=== PATIENT | female | born 1930 | race Hispanic/Latino ===

== ENCOUNTER 2017-06-16 22:57 | Inpatient (IN) | payer MEDICARE ==
[~2017-06-16] VITALS: Ht 165.1 cm; Wt 80.7 kg
[~2017-06-16 22:57] MED LIST: ESCI10TA54 PO; FERS325 PO; INSLAN SQ; INSU100I3 SQ; ISOS30TA6 PO; MECL-111 PO; METF10004 PO; METO-408 PO; PANT40TA25 PO; RAMI10CA58 PO; SIMV20TA6 PO; SUCR1TAB2 PO
[2017-06-16] MEDS ORDERED: KETOROLAC TROMETHAMINE 15MG/ML ONE (23:36)
[2017-06-17 00:14] LABS: EOSINOPHILS % (AUTO) 1.3 % (0.0-8.0); HEMATOCRIT 33.6 % (36-48); LYMPHOCYTES % (AUTO) 20.5 % (21.0-51.0); MEAN CORPUSCULAR HEMOGLOBIN 27.7 pg (27.0-33.0); MEAN CORPUSCULAR HGB CONC 32.5 g/dL (32.0-36.0); MEAN CORPUSCULAR VOLUME 85.1 fL (79-99); MONOCYTES % (AUTO) 2.6 % (3.0-13.0); NEUTROPHILS % (AUTO) 74.6 % (40.0-77.0); PLATELET COUNT (AUTO) 236 K/uL (130-400); RED BLOOD CELL COUNT(AUTO) 3.95 MIL/uL (4.00-5.50); RED CELL DISTRIBUTION WIDTH 21.1 % (11.0-15.5); WHITE BLOOD COUNT (AUTO) 10.1 K/uL (4.8-10.8)
[2017-06-17 00:24] LABS: INR 1.24 (0.85-1.15); PARTIAL THROMBOPLASTIN TIME 31.5 SEC (26.3-35.5); POTASSIUM 3.7 mmol/L (3.5-5.1)
[2017-06-17 00:28] LABS: ALBUMIN 3.2 g/dL (3.5-5.0); BILIRUBIN,TOTAL 0.6 mg/dL (0.2-1.0); TOTAL PROTEIN, SERUM 7.3 g/dL (6.0-8.3)
[2017-06-17] MEDS ORDERED: HYOSCYAMINE SULFATE 0.125 MG TAB.SUBL SL ONE (01:14)
[2017-06-17] MEDS ORDERED: MORPHINE SULFATE 2 MG/ML 1ML SYG ONE (01:31)
[2017-06-17] MEDS ORDERED: SODIUM CHLORIDE 0.9% 1000ML 1,000 ML IV SCH (02:00)
[2017-06-17] MEDS: SODIUM CHLORIDE 0.9% 1000ML 1,000 ML IV SCH (06:08)
[2017-06-17] MEDS ORDERED: POTASSIUM CHLORIDE 10% ELIXIR 20 MEQ/15 ML UDCUP PO PRN (06:15)
[2017-06-17] MEDS ORDERED: ACETAMINOPHEN 325 MG TAB PO PRN ×2 (06:15)
[2017-06-17] MEDS ORDERED: ONDANSETRON HCL 4 MG/2 ML VIAL IV PRN (06:15)
[2017-06-17] MEDS ORDERED: HYDRALAZINE HCL 20 MG/ML VIAL IV PRN (06:15)
[2017-06-17] MEDS ORDERED: LIDOCAINE HCL-MPF 1% 2ML VIAL IVP PRN (06:15)
[2017-06-17] MEDS ORDERED: POTASSIUM CHLORIDE 20MEQ/100ML 100 ML IV PRN (06:15)
[2017-06-17] MEDS ORDERED: MORPHINE SULFATE 2 MG/ML 1ML SYG IV PRN (06:15)
[2017-06-17] MEDS ORDERED: METRONIDAZOLE 500 MG TABLET ONE ×2 (06:32→14:37)
[2017-06-17] MEDS: INSULIN HUMULIN R 100 UNIT/ML 3ML SQ SCH ×4 (07:30→21:00)
[2017-06-17] MEDS: PANTOPRAZOLE SODIUM 40 MG TABLET.DR PO SCH (09:00)
[2017-06-17] MEDS: METRONIDAZOLE 500 MG TABLET PO SCH ×3 (09:00→22:44)
[2017-06-17] MEDS ORDERED: FAMOTIDINE/PF 20 MG/2 ML VIAL IV ONE (10:26)
[2017-06-17] MEDS ORDERED: MORPHINE SULFATE 4 MG/1ML SYG ONE (10:35)
[2017-06-17] MEDS ORDERED: MECLIZINE HCL 25 MG TABLET PO PRN (10:45)
[2017-06-17] MEDS: IRON SUCROSE COMPLEX 100 MG in SODIUM CHLORIDE 0.9% 50 ML IV SCH (10:45)
[2017-06-17] MEDS: CEFTRIAXONE SODIUM 1 GM IVP SCH ×2 (10:45→18:33)
[2017-06-17] MEDS ORDERED: CEFTRIAXONE 1GM/D5W 50ML 50 ML IV SCH (10:45)
[2017-06-17] MEDS ORDERED: COMPOUND IV MISC 1 EACH IVSOLN MISC PRN (10:45)
[2017-06-17] MEDS: SUCRALFATE 1 GM TABLET PO SCH ×3 (13:00→22:44)
[2017-06-17] MEDS ORDERED: ACETAMINOPHEN 325 MG TAB ONE (14:21)
[2017-06-17] MEDS ORDERED: AMLO2.5T PO (15:02)
[2017-06-17] MEDS ORDERED: FERS325 PO (15:08)
[2017-06-17] MEDS ORDERED: FOLI1TAB15 PO (15:08)
[2017-06-17] MEDS ORDERED: DONE5TAB26 PO (15:08)
[2017-06-17 17:30] VITALS: BP 128/54
[2017-06-17] MEDS ORDERED: WATER FOR INJECTION,STERILE 20 ML VIAL ONE (18:21)
[2017-06-17 20:00] VITALS: BP 124/55
[2017-06-17] MEDS ORDERED: FLU VACC QS2017-18 36MOS UP/PF 60 MCG/0.5 ML ML IM SCH (20:30)
[2017-06-17] MEDS: **HM** TOPROL XL 25MG PO SCH (21:00)
[2017-06-17 23:54] VITALS: BP 120/55
[2017-06-18 03:52] LABS: HEMATOCRIT 27.3 % (36-48); MEAN CORPUSCULAR HEMOGLOBIN 27.8 pg (27.0-33.0); MEAN CORPUSCULAR HGB CONC 32.8 g/dL (32.0-36.0); MEAN CORPUSCULAR VOLUME 84.6 fL (79-99); NUCLEATED RED BLOOD CELLS 0.1 % (0.0-0.19); PLATELET COUNT (AUTO) 154 K/uL (130-400); RED BLOOD CELL COUNT(AUTO) 3.23 MIL/uL (4.00-5.50); RED CELL DISTRIBUTION WIDTH 21.9 % (11.0-15.5); WHITE BLOOD COUNT (AUTO) 5.6 K/uL (4.8-10.8)
[2017-06-18 03:58] LABS: CREATININE 1.1 mg/dL (0.5-1.5)
[2017-06-18 04:00] VITALS: BP 139/59
[2017-06-18] MEDS: INSULIN HUMULIN R 100 UNIT/ML 3ML SQ SCH ×4 (07:30→20:35)
[2017-06-18 08:29] VITALS: BP 144/66
[2017-06-18] MEDS ORDERED: DONEPEZIL HCL 5 MG TAB PO SCH (09:00)
[2017-06-18] MEDS: **HM** TOPROL XL 25MG PO SCH ×2 (09:00→20:35)
[2017-06-18] MEDS: FERROUS SULFATE 325 MG TABLET.DR PO SCH ×3 (09:59→20:33)
[2017-06-18] MEDS: SUCRALFATE 1 GM TABLET PO SCH ×4 (09:59→20:33)
[2017-06-18] MEDS: LISINOPRIL 40 MG TABLET PO SCH ×2 (10:01→20:33)
[2017-06-18] MEDS: PANTOPRAZOLE SODIUM 40 MG TABLET.DR PO SCH (10:02)
[2017-06-18] MEDS: METRONIDAZOLE 500 MG TABLET PO SCH ×3 (10:02→20:33)
[2017-06-18] MEDS: SODIUM CHLORIDE 0.9% 1000ML 1,000 ML IV SCH ×2 (10:11→15:09)
[2017-06-18 11:35] VITALS: BP 144/74
[2017-06-18 13:34] LABS: % IRON SATURATION 22.8 % (22-44)
[2017-06-18] MEDS: CEFTRIAXONE SODIUM 1 GM IVP SCH (15:01)
[2017-06-18] MEDS: IRON SUCROSE COMPLEX 100 MG in SODIUM CHLORIDE 0.9% 50 ML IV SCH (15:06)
[2017-06-18 15:46] VITALS: BP 125/60
[2017-06-18] MEDS ORDERED: MORPHINE SULFATE 4 MG/1ML SYG ONE (17:15)
[2017-06-18] MEDS ORDERED: LOPERAMIDE HCL 2 MG CAP PO PRN (18:00)
[2017-06-18] MEDS: GUAIFENESIN SUGAR-FREE 100 MG/5 ML UDCUP PO PRN (18:37)
[2017-06-18 20:20] VITALS: BP 164/76
[2017-06-18] MEDS: DONEPEZIL HCL 5 MG TAB PO SCH (20:33)
[2017-06-18 23:20] VITALS: BP 126/82
[2017-06-19] MEDS: GUAIFENESIN SUGAR-FREE 100 MG/5 ML UDCUP PO PRN ×5 (02:53→21:29)
[2017-06-19 03:56] LABS: HEMATOCRIT 28.7 % (36-48); MEAN CORPUSCULAR HEMOGLOBIN 28.9 pg (27.0-33.0); MEAN CORPUSCULAR HGB CONC 33.9 g/dL (32.0-36.0); MEAN CORPUSCULAR VOLUME 85.4 fL (79-99); PLATELET COUNT (AUTO) 151 K/uL (130-400); RED BLOOD CELL COUNT(AUTO) 3.36 MIL/uL (4.00-5.50); RED CELL DISTRIBUTION WIDTH 22.1 % (11.0-15.5); WHITE BLOOD COUNT (AUTO) 5.1 K/uL (4.8-10.8)
[2017-06-19 04:24] VITALS: BP 126/61
[2017-06-19] MEDS: INSULIN HUMULIN R 100 UNIT/ML 3ML SQ SCH ×4 (06:30→20:42)
[2017-06-19] MEDS: INSULIN GLARGINE 100 UNITS/ML 10 ML VIAL SQ SCH (06:41)
[2017-06-19 08:00] VITALS: BP 143/74
[2017-06-19] MEDS: **HM** TOPROL XL 25MG PO SCH ×2 (09:00→20:17)
[2017-06-19] MEDS: SUCRALFATE 1 GM TABLET PO SCH ×4 (09:05→20:16)
[2017-06-19] MEDS: METRONIDAZOLE 500 MG TABLET PO SCH ×3 (09:05→20:16)
[2017-06-19] MEDS: LISINOPRIL 40 MG TABLET PO SCH ×2 (09:05→20:17)
[2017-06-19] MEDS: AMLODIPINE BESYLATE 2.5 MG TAB PO SCH (09:05)
[2017-06-19] MEDS: PANTOPRAZOLE SODIUM 40 MG TABLET.DR PO SCH (09:05)
[2017-06-19] MEDS: FOLIC ACID 1 MG TABLET PO SCH (09:06)
[2017-06-19] MEDS: FERROUS SULFATE 325 MG TABLET.DR PO SCH ×3 (09:06→20:16)
[2017-06-19] MEDS: SODIUM CHLORIDE 0.9% 1000ML 1,000 ML IV SCH (09:08)
[2017-06-19 11:44] VITALS: BP 143/75
[2017-06-19] MEDS: LEVOFLOXACIN 500 MG/D5W 100 ML 100 ML IV SCH (11:45)
[2017-06-19] MEDS ORDERED: MORPHINE SULFATE 4 MG/1ML SYG ONE (12:01)
[2017-06-19] MEDS: IRON SUCROSE COMPLEX 100 MG in SODIUM CHLORIDE 0.9% 50 ML IV SCH (13:06)
[2017-06-19 15:53] VITALS: BP 162/70
[2017-06-19 17:09] LABS: ALBUMIN 2.6 g/dL (3.5-5.0); BILIRUBIN,TOTAL 0.4 mg/dL (0.2-1.0); CREATININE 0.9 mg/dL (0.5-1.5); POTASSIUM 3.7 mmol/L (3.5-5.1); TOTAL PROTEIN, SERUM 6.3 g/dL (6.0-8.3)
[2017-06-19 17:36] LABS: % IRON SATURATION 97.4 % (22-44)
[2017-06-19] MEDS: BENZONATATE 100 MG CAPSULE PO SCH ×2 (18:54→22:06)
[2017-06-19] MEDS ORDERED: MORPHINE SULFATE 5 MG/ML VIAL ONE (19:34)
[2017-06-19 19:45] VITALS: BP 138/74
[2017-06-19] MEDS: DONEPEZIL HCL 5 MG TAB PO SCH (20:17)
[2017-06-19] MEDS ORDERED: CLONAZEPAM 0.5 MG TABLET PO ONE (22:30)
[2017-06-19] MEDS ORDERED: CLONAZEPAM 0.5 MG TABLET ONE (23:42)
[2017-06-19 23:56] VITALS: BP 132/59
[2017-06-20 04:34] VITALS: BP 117/66
[2017-06-20] MEDS: SODIUM CHLORIDE 0.9% 1000ML 1,000 ML IV SCH ×2 (06:03→17:47)
[2017-06-20] MEDS: BENZONATATE 100 MG CAPSULE PO SCH ×3 (06:03→22:10)
[2017-06-20] MEDS: INSULIN HUMULIN R 100 UNIT/ML 3ML SQ SCH ×4 (06:04→20:52)
[2017-06-20 06:20] LABS: HEMATOCRIT 27.5 % (36-48); MEAN CORPUSCULAR HEMOGLOBIN 28.4 pg (27.0-33.0); MEAN CORPUSCULAR HGB CONC 33.5 g/dL (32.0-36.0); MEAN CORPUSCULAR VOLUME 84.7 fL (79-99); PLATELET COUNT (AUTO) 152 K/uL (130-400); RED BLOOD CELL COUNT(AUTO) 3.25 MIL/uL (4.00-5.50); RED CELL DISTRIBUTION WIDTH 21.3 % (11.0-15.5); WHITE BLOOD COUNT (AUTO) 4.9 K/uL (4.8-10.8)
[2017-06-20 06:24] LABS: APPEARANCE,URINE CLEAR (CLEAR); BILIRUBIN,URINE NEGATIVE (NEGATIVE); COLOR,URINE YELLOW (YELLOW); GLUCOSE, URINE (UA) NEGATIVE (NEGATIVE); KETONES,URINE NEGATIVE (NEGATIVE); LEUKOCYTE ESTERASE ,URINE NEGATIVE (NEGATIVE); NITRATE,URINE NEGATIVE (NEGATIVE); OCCULT BLOOD,URINE NEGATIVE (NEGATIVE); PROTEIN,URINE NEGATIVE (NEGATIVE); UROBILINOGEN,URINE 0.2 mg/dL (0.2-1.0)
[2017-06-20 06:26] LABS: CHLORIDE 108 mmol/L (101-111); CREATININE 0.7 mg/dL (0.5-1.5); GLUCOSE,RANDOM 82 mg/dL (70-105); POTASSIUM 3.5 mmol/L (3.5-5.1); SODIUM SERUM 142 mmol/L (136-145); UREA NITROGEN, BLOOD 7 mg/dL (7-18)
[2017-06-20 06:30] LABS: CARBON DIOXIDE 26 mmol/L (21-32)
[2017-06-20] MEDS: INSULIN GLARGINE 100 UNITS/ML 10 ML VIAL SQ SCH (06:51)
[2017-06-20 08:16] VITALS: BP 146/69
[2017-06-20] MEDS: **HM** TOPROL XL 25MG PO SCH ×2 (09:00→20:25)
[2017-06-20] MEDS ORDERED: IPRATROPIUM/ALBUTEROL SULFATE 3 ML SOLUTION IH PRN (10:15)
[2017-06-20] MEDS: METRONIDAZOLE 500 MG TABLET PO SCH ×3 (10:24→20:25)
[2017-06-20] MEDS: AMLODIPINE BESYLATE 2.5 MG TAB PO SCH (10:24)
[2017-06-20] MEDS: PANTOPRAZOLE SODIUM 40 MG TABLET.DR PO SCH (10:24)
[2017-06-20] MEDS: FERROUS SULFATE 325 MG TABLET.DR PO SCH ×3 (10:24→20:25)
[2017-06-20] MEDS: SUCRALFATE 1 GM TABLET PO SCH ×4 (10:24→20:24)
[2017-06-20] MEDS: FOLIC ACID 1 MG TABLET PO SCH (10:25)
[2017-06-20] MEDS: LISINOPRIL 40 MG TABLET PO SCH ×2 (10:25→20:25)
[2017-06-20] MEDS: GUAIFENESIN SUGAR-FREE 100 MG/5 ML UDCUP PO PRN (10:27)
[2017-06-20] MEDS: LEVOFLOXACIN 500 MG/D5W 100 ML 100 ML IV SCH (10:35)
[2017-06-20] MEDS: IPRATROPIUM/ALBUTEROL SULFATE 3 ML SOLUTION IH SCH ×2 (10:35→19:12)
[2017-06-20] MEDS: ACETYLCYSTEINE 10% 100MG/ML 4ML VIAL IH SCH ×2 (10:36→19:12)
[2017-06-20 11:13] VITALS: BP 170/76
[2017-06-20] MEDS: IRON SUCROSE COMPLEX 100 MG in SODIUM CHLORIDE 0.9% 50 ML IV SCH (12:23)
[2017-06-20] MEDS: GUAIFENESIN-CODEINE 5 ML SYRUP PO PRN (12:51)
[2017-06-20] MEDS ORDERED: MORPHINE SULFATE 5 MG/ML VIAL ONE (14:40)
[2017-06-20 16:43] VITALS: BP 127/53
[2017-06-20 19:40] VITALS: BP 140/67
[2017-06-20] MEDS: CLONAZEPAM 0.5 MG TABLET PO SCH (20:24)
[2017-06-20] MEDS: DONEPEZIL HCL 5 MG TAB PO SCH (20:25)
[2017-06-20] MEDS ORDERED: ACETYLCYSTEINE 20% 200MG/ML 4ML VIAL IH SCH (21:00)
[2017-06-20 23:50] VITALS: BP 138/71
[2017-06-21] MEDS: IPRATROPIUM/ALBUTEROL SULFATE 3 ML SOLUTION IH SCH ×5 (00:07→23:57)
[2017-06-21] MEDS: ACETYLCYSTEINE 10% 100MG/ML 4ML VIAL IH SCH ×5 (00:07→23:57)
[2017-06-21 05:03] VITALS: BP 129/61
[2017-06-21] MEDS: BENZONATATE 100 MG CAPSULE PO SCH ×3 (05:49→20:50)
[2017-06-21 06:04] LABS: HEMATOCRIT 27.5 % (36-48); MEAN CORPUSCULAR HEMOGLOBIN 29.7 pg (27.0-33.0); MEAN CORPUSCULAR HGB CONC 34.7 g/dL (32.0-36.0); MEAN CORPUSCULAR VOLUME 85.5 fL (79-99); NUCLEATED RED BLOOD CELLS 0.1 % (0.0-0.19); PLATELET COUNT (AUTO) 150 K/uL (130-400); RED BLOOD CELL COUNT(AUTO) 3.21 MIL/uL (4.00-5.50); RED CELL DISTRIBUTION WIDTH 21.7 % (11.0-15.5); WHITE BLOOD COUNT (AUTO) 4.8 K/uL (4.8-10.8)
[2017-06-21] MEDS: INSULIN HUMULIN R 100 UNIT/ML 3ML SQ SCH ×4 (06:13→20:48)
[2017-06-21] MEDS: INSULIN GLARGINE 100 UNITS/ML 10 ML VIAL SQ SCH (07:30)
[2017-06-21 08:00] VITALS: BP 130/67
[2017-06-21] MEDS: METRONIDAZOLE 500 MG TABLET PO SCH ×3 (08:55→20:47)
[2017-06-21] MEDS: LISINOPRIL 40 MG TABLET PO SCH ×2 (08:55→20:47)
[2017-06-21] MEDS: FOLIC ACID 1 MG TABLET PO SCH (08:56)
[2017-06-21] MEDS: SUCRALFATE 1 GM TABLET PO SCH ×4 (08:56→20:47)
[2017-06-21] MEDS: AMLODIPINE BESYLATE 2.5 MG TAB PO SCH (08:56)
[2017-06-21] MEDS: GUAIFENESIN-CODEINE 5 ML SYRUP PO PRN ×3 (08:56→22:17)
[2017-06-21] MEDS: FERROUS SULFATE 325 MG TABLET.DR PO SCH ×3 (08:56→20:47)
[2017-06-21] MEDS: PANTOPRAZOLE SODIUM 40 MG TABLET.DR PO SCH (08:56)
[2017-06-21] MEDS: **HM** TOPROL XL 25MG PO SCH ×2 (09:00→20:48)
[2017-06-21] MEDS: SODIUM CHLORIDE 0.9% 1000ML 1,000 ML IV SCH (10:08)
[2017-06-21 11:00] VITALS: BP 138/74
[2017-06-21] MEDS: IRON SUCROSE COMPLEX 100 MG in SODIUM CHLORIDE 0.9% 50 ML IV SCH (13:38)
[2017-06-21] MEDS: LEVOFLOXACIN 500 MG/D5W 100 ML 100 ML IV SCH (15:08)
[2017-06-21 16:00] VITALS: BP 129/57
[2017-06-21 20:05] VITALS: BP 135/62
[2017-06-21] MEDS: DONEPEZIL HCL 5 MG TAB PO SCH (20:47)
[2017-06-21] MEDS: CLONAZEPAM 0.5 MG TABLET PO SCH (20:48)
[2017-06-21] MEDS: GUAIFENESIN SUGAR-FREE 100 MG/5 ML UDCUP PO PRN (22:14)
[2017-06-21 23:47] VITALS: BP 124/63
[2017-06-22 04:01] LABS: HEMATOCRIT 26.9 % (36-48)
[2017-06-22 04:20] VITALS: BP 118/52
[2017-06-22] MEDS: ACETYLCYSTEINE 10% 100MG/ML 4ML VIAL IH SCH ×4 (06:17→23:36)
[2017-06-22] MEDS: IPRATROPIUM/ALBUTEROL SULFATE 3 ML SOLUTION IH SCH ×4 (06:17→23:36)
[2017-06-22] MEDS: BENZONATATE 100 MG CAPSULE PO SCH ×3 (06:20→22:00)
[2017-06-22] MEDS: INSULIN HUMULIN R 100 UNIT/ML 3ML SQ SCH ×4 (06:21→20:42)
[2017-06-22] MEDS: INSULIN GLARGINE 100 UNITS/ML 10 ML VIAL SQ SCH (07:41)
[2017-06-22 07:58] VITALS: BP 137/97
[2017-06-22] MEDS: **HM** TOPROL XL 25MG PO SCH ×2 (09:00→20:31)
[2017-06-22] MEDS: METRONIDAZOLE 500 MG TABLET PO SCH ×3 (10:09→20:30)
[2017-06-22] MEDS: SUCRALFATE 1 GM TABLET PO SCH ×4 (10:09→20:30)
[2017-06-22] MEDS: PANTOPRAZOLE SODIUM 40 MG TABLET.DR PO SCH (10:09)
[2017-06-22] MEDS: GUAIFENESIN-CODEINE 5 ML SYRUP PO PRN ×3 (10:09→20:42)
[2017-06-22] MEDS: FOLIC ACID 1 MG TABLET PO SCH (10:09)
[2017-06-22] MEDS: FERROUS SULFATE 325 MG TABLET.DR PO SCH ×3 (10:09→20:30)
[2017-06-22] MEDS: LISINOPRIL 40 MG TABLET PO SCH ×2 (10:10→20:30)
[2017-06-22] MEDS: AMLODIPINE BESYLATE 2.5 MG TAB PO SCH (10:10)
[2017-06-22 11:00] VITALS: BP 141/68
[2017-06-22] MEDS: LEVOFLOXACIN 500 MG/D5W 100 ML 100 ML IV SCH (13:59)
[2017-06-22] MEDS: IRON SUCROSE COMPLEX 100 MG in SODIUM CHLORIDE 0.9% 50 ML IV SCH (13:59)
[2017-06-22 16:00] VITALS: BP 136/63
[2017-06-22 17:27] LABS: HEMATOCRIT 29.4 % (36-48)
[2017-06-22] MEDS: DONEPEZIL HCL 5 MG TAB PO SCH (20:31)
[2017-06-22] MEDS: CLONAZEPAM 0.5 MG TABLET PO SCH (20:31)
[2017-06-22 20:38] VITALS: BP 134/64
[2017-06-23] VITALS (7 sets, daily range): BP systolic 112–135; BP diastolic 41–63
[2017-06-23 06:09] LABS: HEMATOCRIT 27.5 % (36-48); MEAN CORPUSCULAR HEMOGLOBIN 29.1 pg (27.0-33.0); MEAN CORPUSCULAR HGB CONC 34.1 g/dL (32.0-36.0); MEAN CORPUSCULAR VOLUME 85.5 fL (79-99); PLATELET COUNT (AUTO) 153 K/uL (130-400); RED BLOOD CELL COUNT(AUTO) 3.22 MIL/uL (4.00-5.50); RED CELL DISTRIBUTION WIDTH 22.5 % (11.0-15.5)
[2017-06-23 06:19] LABS: CREATININE 0.7 mg/dL (0.5-1.5); POTASSIUM 3.2 mmol/L (3.5-5.1)
[2017-06-23] MEDS: INSULIN HUMULIN R 100 UNIT/ML 3ML SQ SCH ×4 (06:21→21:00)
[2017-06-23] MEDS: IPRATROPIUM/ALBUTEROL SULFATE 3 ML SOLUTION IH SCH ×4 (06:31→23:40)
[2017-06-23] MEDS: ACETYLCYSTEINE 10% 100MG/ML 4ML VIAL IH SCH ×4 (06:31→23:40)
[2017-06-23] MEDS: BENZONATATE 100 MG CAPSULE PO SCH ×3 (06:44→22:00)
[2017-06-23] MEDS: INSULIN GLARGINE 100 UNITS/ML 10 ML VIAL SQ SCH (06:46)
[2017-06-23] MEDS: **HM** TOPROL XL 25MG PO SCH ×2 (09:00→21:00)
[2017-06-23] MEDS: METRONIDAZOLE 500 MG TABLET PO SCH ×2 (10:06→12:56)
[2017-06-23] MEDS: SUCRALFATE 1 GM TABLET PO SCH ×2 (10:06→12:32)
[2017-06-23] MEDS: FOLIC ACID 1 MG TABLET PO SCH (10:06)
[2017-06-23] MEDS: LISINOPRIL 40 MG TABLET PO SCH (10:06)
[2017-06-23] MEDS: AMLODIPINE BESYLATE 2.5 MG TAB PO SCH (10:06)
[2017-06-23] MEDS: FERROUS SULFATE 325 MG TABLET.DR PO SCH (10:07)
[2017-06-23] MEDS: GUAIFENESIN-CODEINE 5 ML SYRUP PO PRN ×3 (10:07→22:44)
[2017-06-23] MEDS: POTASSIUM CHLORIDE 20 MEQ ERTAB PO PRN ×3 (10:17→15:25)
[2017-06-23] MEDS: IRON SUCROSE COMPLEX 100 MG in SODIUM CHLORIDE 0.9% 50 ML IV SCH (12:32)
[2017-06-23] MEDS: LEVOFLOXACIN 500 MG/D5W 100 ML 100 ML IV SCH (15:25)
[2017-06-23] MEDS ORDERED: PEG 3350/NA SULF,BICARB,CL/KCL 4000 ML SOLN PO SCH (17:00)
[2017-06-23] MEDS ORDERED: PHENOL 177 ML BOTTLE PO PRN (17:00)
[2017-06-23] MEDS ORDERED: METHYLPREDNISOLONE SOD SUCC 40MG/ML 1ML IVP SCH (21:00)
[2017-06-24] VITALS (19 sets, daily range): BP systolic 101–145; BP diastolic 51–94
[2017-06-24] MEDS: CLONAZEPAM 0.5 MG TABLET PO SCH ×2 (01:58→21:00)
[2017-06-24] MEDS: DONEPEZIL HCL 5 MG TAB PO SCH ×2 (01:58→20:58)
[2017-06-24] MEDS: METRONIDAZOLE 500 MG TABLET PO SCH ×4 (02:00→20:59)
[2017-06-24] MEDS: LISINOPRIL 40 MG TABLET PO SCH ×3 (02:00→20:59)
[2017-06-24] MEDS: PANTOPRAZOLE SODIUM 40 MG TABLET.DR PO SCH ×3 (02:00→21:00)
[2017-06-24] MEDS: BENZONATATE 100 MG CAPSULE PO SCH ×3 (03:28→21:00)
[2017-06-24 04:09] LABS: HEMATOCRIT 29.2 % (36-48); MEAN CORPUSCULAR HEMOGLOBIN 28.1 pg (27.0-33.0); MEAN CORPUSCULAR HGB CONC 32.8 g/dL (32.0-36.0); MEAN CORPUSCULAR VOLUME 85.6 fL (79-99); PLATELET COUNT (AUTO) 161 K/uL (130-400); RED BLOOD CELL COUNT(AUTO) 3.42 MIL/uL (4.00-5.50); RED CELL DISTRIBUTION WIDTH 22.7 % (11.0-15.5); WHITE BLOOD COUNT (AUTO) 4.9 K/uL (4.8-10.8)
[2017-06-24 04:22] LABS: CREATININE 0.7 mg/dL (0.5-1.5); POTASSIUM 4.2 mmol/L (3.5-5.1)
[2017-06-24] MEDS: IPRATROPIUM/ALBUTEROL SULFATE 3 ML SOLUTION IH SCH ×3 (06:00→18:33)
[2017-06-24] MEDS: ACETYLCYSTEINE 10% 100MG/ML 4ML VIAL IH SCH ×2 (06:00→18:33)
[2017-06-24] MEDS ORDERED: MAGNESIUM CITRATE 296 ML SOLUTION PO SCH (06:00)
[2017-06-24] MEDS: INSULIN GLARGINE 100 UNITS/ML 10 ML VIAL SQ SCH (06:27)
[2017-06-24] MEDS: INSULIN HUMULIN R 100 UNIT/ML 3ML SQ SCH ×4 (06:28→21:00)
[2017-06-24] MEDS ORDERED: IPRATROPIUM/ALBUTEROL SULFATE 3 ML SOLUTION IH SCH (09:00)
[2017-06-24] MEDS: **HM** TOPROL XL 25MG PO SCH ×2 (09:00→21:04)
[2017-06-24] MEDS ORDERED: FENTANYL CITRATE PF 50 MCG/1 ML 2ML VIAL ONE (09:22)
[2017-06-24] MEDS ORDERED: MIDAZOLAM HCL 1 MG/ML 2ML VIAL ONE (09:22)
[2017-06-24] MEDS ORDERED: PROPOFOL 10 MG/ML 20ML VIAL IV ONE (09:22)
[2017-06-24] MEDS: IRON SUCROSE COMPLEX 100 MG in SODIUM CHLORIDE 0.9% 50 ML IV SCH (13:08)
[2017-06-24] MEDS: FOLIC ACID 1 MG TABLET PO SCH (13:09)
[2017-06-24] MEDS: AMLODIPINE BESYLATE 2.5 MG TAB PO SCH (13:12)
[2017-06-24] MEDS: LEVOFLOXACIN 500 MG/D5W 100 ML 100 ML IV SCH (13:22)
[2017-06-24] MEDS: METHYLPREDNISOLONE SOD SUCC 40MG/ML 1ML IVP SCH (20:59)
[2017-06-24] MEDS: HYDROCORTISONE 25 MG SUPPOSITORY PR SCH (21:00)
[2017-06-25] MEDS: IPRATROPIUM/ALBUTEROL SULFATE 3 ML SOLUTION IH SCH ×2 (00:24→07:02)
[2017-06-25 03:47] VITALS: BP 126/63
[2017-06-25 04:14] LABS: CREATININE 0.9 mg/dL (0.5-1.5); POTASSIUM 4.8 mmol/L (3.5-5.1)
[2017-06-25 05:11] LABS: HEMATOCRIT 27.2 % (36-48); MEAN CORPUSCULAR HEMOGLOBIN 28.4 pg (27.0-33.0); MEAN CORPUSCULAR HGB CONC 32.7 g/dL (32.0-36.0); MEAN CORPUSCULAR VOLUME 86.8 fL (79-99); PLATELET COUNT (AUTO) 156 K/uL (130-400); RED BLOOD CELL COUNT(AUTO) 3.13 MIL/uL (4.00-5.50); RED CELL DISTRIBUTION WIDTH 23.1 % (11.0-15.5); WHITE BLOOD COUNT (AUTO) 7.2 K/uL (4.8-10.8)
[2017-06-25] MEDS: BENZONATATE 100 MG CAPSULE PO SCH (06:00)
[2017-06-25] MEDS: GUAIFENESIN-CODEINE 5 ML SYRUP PO PRN ×2 (06:29→11:54)
[2017-06-25] MEDS: INSULIN GLARGINE 100 UNITS/ML 10 ML VIAL SQ SCH (06:35)
[2017-06-25] MEDS: INSULIN HUMULIN R 100 UNIT/ML 3ML SQ SCH ×2 (06:36→11:45)
[2017-06-25 07:00] VITALS: BP 131/61
[2017-06-25] MEDS: HYDROCORTISONE 25 MG SUPPOSITORY PR SCH (08:57)
[2017-06-25] MEDS: AMLODIPINE BESYLATE 2.5 MG TAB PO SCH (08:57)
[2017-06-25] MEDS: LISINOPRIL 40 MG TABLET PO SCH (08:57)
[2017-06-25] MEDS: FOLIC ACID 1 MG TABLET PO SCH (08:57)
[2017-06-25] MEDS: METRONIDAZOLE 500 MG TABLET PO SCH (08:57)
[2017-06-25] MEDS: PANTOPRAZOLE SODIUM 40 MG TABLET.DR PO SCH (08:57)
[2017-06-25] MEDS: METHYLPREDNISOLONE SOD SUCC 40MG/ML 1ML IVP SCH (08:57)
[2017-06-25] MEDS: **HM** TOPROL XL 25MG PO SCH (08:58)
[2017-06-25] MEDS: IRON SUCROSE COMPLEX 100 MG in SODIUM CHLORIDE 0.9% 50 ML IV SCH (08:58)
[2017-06-25] MEDS ORDERED: LEVO250T2 PO (09:36)
[2017-06-25] MEDS ORDERED: HYDR25SU11 PR (09:36)
[2017-06-25 11:01] VITALS: BP 129/61
[2017-06-25] MEDS: GUAIFENESIN SUGAR-FREE 100 MG/5 ML UDCUP PO PRN (11:49)
== END 2017-06-25 12:40 | disposition home or self-care (01) | DRG 372 ==
LOC: EDH 22:57 → EDHIP 06-17 01:16 → OBSVTOIN 06-17 01:16 → 3BH 06-17 16:54
PROVIDERS: ADMIT Family Medicine; ATTEND Family Medicine
PROC: 0DJD8ZZ Inspection of Lower Intestinal Tract, Via Natural or Artificial Opening Endoscopic (ICD-10-PCS; principal; 2017-06-24)
PROC: 3E0234Z Introduction of Serum, Toxoid and Vaccine into Muscle, Percutaneous Approach (ICD-10-PCS; 2017-06-25)
DX: A04.4 Other intestinal Escherichia coli infections (principal); D62 Acute posthemorrhagic anemia; E11.9 Type 2 diabetes mellitus without complications; D63.8 Anemia in other chronic diseases classified elsewhere; G30.9 Alzheimer's disease, unspecified; F02.80 Dementia in other diseases classified elsewhere, unspecified severity, without behavioral disturbance, psychotic disturbance, mood disturbance, and anxiety; E78.5 Hyperlipidemia, unspecified; K55.20 Angiodysplasia of colon without hemorrhage; K57.90 Diverticulosis of intestine, part unspecified, without perforation or abscess without bleeding; K64.8 Other hemorrhoids; I10 Essential (primary) hypertension; J20.9 Acute bronchitis, unspecified; F41.9 Anxiety disorder, unspecified; K29.70 Gastritis, unspecified, without bleeding; K44.9 Diaphragmatic hernia without obstruction or gangrene; Z86.73 Personal history of transient ischemic attack (TIA), and cerebral infarction without residual deficits; Z90.49 Acquired absence of other specified parts of digestive tract; Z23 Encounter for immunization
CPT/HCPCS: 36415; 71045; 71046; 71250; 74176; 80048; 80053; 81003; 82150; 82270; 82607; 82728; 82746; 82948; 83540; 83550; 83690; 85025; 85027; 85610; 85730; 87040; 87046; 87071; 87177; 87205; 87324; 87507; 87804; 92610; 93971; 94640; 94664; A4218; G0008; J0696; J1756; J1815; J1885; J1956; J2250; J2270; J2704; J2920; J3010; J3490; J7030; J7608; Q2038

== ENCOUNTER 2017-08-04 09:03 | Inpatient (IN) | payer MEDICARE ==
[~2017-08-04] VITALS: Ht 157.5 cm; Wt 81.7 kg
[~2017-08-04 09:03] MED LIST changes: +AMLO2.5T PO; +DONE5TAB26 PO; -ESCI10TA54 PO; +FOLI1TAB15 PO; +HYDR25SU11 PR; -ISOS30TA6 PO; +LEVO250T2 PO; -SIMV20TA6 PO
[2017-08-04 10:19] LABS: BASOPHILS % (AUTO) 0.8 % (0.0-5.0); LYMPHOCYTES % (AUTO) 36.3 % (21.0-51.0); MEAN CORPUSCULAR HGB CONC 33.9 g/dL (32.0-36.0); MEAN CORPUSCULAR VOLUME 88.4 fL (79-99); MONOCYTES % (AUTO) 8.6 % (3.0-13.0); NEUTROPHILS % (AUTO) 52.3 % (40.0-77.0); NUCLEATED RED BLOOD CELLS 0.1 % (0.0-0.19); PLATELET COUNT (AUTO) 144 K/uL (130-400); RED BLOOD CELL COUNT(AUTO) 4.07 MIL/uL (4.00-5.50); RED CELL DISTRIBUTION WIDTH 20.5 % (11.0-15.5); WHITE BLOOD COUNT (AUTO) 5.5 K/uL (4.8-10.8)
[2017-08-04 10:30] LABS: CREATININE 0.8 mg/dL (0.5-1.5); POTASSIUM 4.4 mmol/L (3.5-5.1)
[2017-08-04 10:34] LABS: ALBUMIN 3.1 g/dL (3.5-5.0); BILIRUBIN,TOTAL 1.2 mg/dL (0.2-1.0)
[2017-08-04 10:36] LABS: INR 1.26 (0.85-1.15); PARTIAL THROMBOPLASTIN TIME 31.4 SEC (26.3-35.5); PROTHROMBIN TIME 13.2 SEC (9.6-11.6)
[2017-08-04] MEDS ORDERED: SODIUM CHLORIDE 0.9% 1000ML 1,000 ML IV ONE (10:37)
[2017-08-04] MEDS ORDERED: ONDANSETRON HCL 4 MG/2 ML VIAL ONE (10:50)
[2017-08-04] MEDS ORDERED: MORPHINE SULFATE 2 MG/ML 1ML SYG ONE (10:50)
[2017-08-04] MEDS ORDERED: MAG HYDROX/AL HYDROX/SIMETH ES 30 ML SUSP UDCUP PO PRN (11:15)
[2017-08-04] MEDS ORDERED: ONDANSETRON HCL 4 MG/2 ML VIAL IV PRN (11:15)
[2017-08-04] MEDS ORDERED: ACETAMINOPHEN 325 MG TAB PO PRN (11:15)
[2017-08-04] MEDS ORDERED: LACTULOSE 20 GM/30 ML UDCUP PO PRN (11:15)
[2017-08-04] MEDS ORDERED: GUAIFENESIN-DM 200/20 MG 10 ML PO PRN (11:15)
[2017-08-04] MEDS ORDERED: MORPHINE SULFATE 2 MG/ML 1ML SYG IV PRN (11:15)
[2017-08-04 22:20] VITALS: BP 166/71
[2017-08-04] MEDS ORDERED: DEXTROSE 50%-WATER 50 ML DISP.SYRIN IV ONE (23:30)
[2017-08-04] MEDS ORDERED: MIRT15TA7 PO (23:45)
[2017-08-04] MEDS ORDERED: DEXTROSE 5 %-0.45 % NACL 1,000 ML IV ONE (23:51)
[2017-08-05] VITALS (7 sets, daily range): BP systolic 135–160; BP diastolic 64–86
[2017-08-05 04:05] LABS: BASOPHILS % (AUTO) 0.8 % (0.0-5.0); EOSINOPHILS % (AUTO) 1.7 % (0.0-8.0); HEMATOCRIT 32.4 % (36-48); LYMPHOCYTES % (AUTO) 38.6 % (21.0-51.0); MEAN CORPUSCULAR HEMOGLOBIN 31.1 pg (27.0-33.0); MEAN CORPUSCULAR HGB CONC 35.1 g/dL (32.0-36.0); MEAN CORPUSCULAR VOLUME 88.6 fL (79-99); MONOCYTES % (AUTO) 9.3 % (3.0-13.0); NEUTROPHILS % (AUTO) 49.6 % (40.0-77.0); PLATELET COUNT (AUTO) 130 K/uL (130-400); RED BLOOD CELL COUNT(AUTO) 3.65 MIL/uL (4.00-5.50); RED CELL DISTRIBUTION WIDTH 20.9 % (11.0-15.5)
[2017-08-05 04:11] LABS: CREATININE 0.7 mg/dL (0.5-1.5); POTASSIUM 3.8 mmol/L (3.5-5.1)
[2017-08-05] MEDS ORDERED: DEXTROSE 50%-WATER 50 ML DISP.SYRIN IV ONE (05:50)
[2017-08-05] MEDS: FAMOTIDINE/PF 20 MG/2 ML VIAL IV SCH (09:22)
[2017-08-05] MEDS ORDERED: GLUCAGON 1MG KIT 1 MG ML IM PRN (11:00)
[2017-08-05] MEDS ORDERED: DEXTROSE 50%-WATER 50 ML DISP.SYRIN IV PRN (11:00)
[2017-08-05] MEDS: INSULIN HUMULIN R 100 UNIT/ML 3ML SQ SCH ×3 (11:30→21:00)
[2017-08-05] MEDS: SUCRALFATE 1 GM TABLET PO SCH ×2 (14:31→21:14)
[2017-08-05] MEDS: LISINOPRIL 40 MG TABLET PO SCH (21:14)
[2017-08-05] MEDS: MIRTAZAPINE 15 MG TABLET PO SCH (21:14)
[2017-08-05] MEDS: DONEPEZIL HCL 5 MG TAB PO SCH (21:14)
[2017-08-05] MEDS: METOPROLOL TARTRATE 25 MG TAB PO SCH (21:14)
[2017-08-05] MEDS ORDERED: DEXTROSE 5 %-0.45 % NACL 1,000 ML IV SCH (23:15)
[2017-08-05] MEDS ORDERED: DEXTROSE 5 %-0.45 % NACL 1,000 ML IV ONE (23:25)
[2017-08-06 03:20] VITALS: BP 145/69
[2017-08-06 03:35] LABS: HEMATOCRIT 32.3 % (36-48)
[2017-08-06 07:00] VITALS: BP 147/70
[2017-08-06] MEDS: INSULIN HUMULIN R 100 UNIT/ML 3ML SQ SCH ×3 (07:30→20:45)
[2017-08-06] MEDS: SUCRALFATE 1 GM TABLET PO SCH ×3 (09:29→21:10)
[2017-08-06] MEDS: FAMOTIDINE/PF 20 MG/2 ML VIAL IV SCH (09:29)
[2017-08-06] MEDS: AMLODIPINE BESYLATE 2.5 MG TAB PO SCH (09:29)
[2017-08-06] MEDS: LISINOPRIL 40 MG TABLET PO SCH ×2 (09:29→21:09)
[2017-08-06] MEDS: METOPROLOL TARTRATE 25 MG TAB PO SCH ×2 (09:29→21:10)
[2017-08-06 11:00] VITALS: BP 136/66
[2017-08-06 16:00] VITALS: BP 120/67
[2017-08-06 19:45] VITALS: BP 146/77
[2017-08-06] MEDS: MIRTAZAPINE 15 MG TABLET PO SCH (21:09)
[2017-08-06] MEDS: DONEPEZIL HCL 5 MG TAB PO SCH (21:10)
[2017-08-06 23:53] VITALS: BP 148/72
[2017-08-07 03:25] VITALS: BP 134/54
[2017-08-07 04:25] LABS: HEMATOCRIT 31.5 % (36-48)
[2017-08-07 04:33] LABS: CREATININE 0.8 mg/dL (0.5-1.5); POTASSIUM 3.6 mmol/L (3.5-5.1)
[2017-08-07] MEDS: INSULIN HUMULIN R 100 UNIT/ML 3ML SQ SCH ×4 (06:47→20:47)
[2017-08-07 07:00] VITALS: BP 131/60
[2017-08-07] MEDS: FAMOTIDINE/PF 20 MG/2 ML VIAL IV SCH (09:00)
[2017-08-07 11:00] VITALS: BP 135/55
[2017-08-07] MEDS: AMLODIPINE BESYLATE 2.5 MG TAB PO SCH (11:00)
[2017-08-07] MEDS: SUCRALFATE 1 GM TABLET PO SCH ×3 (11:00→20:47)
[2017-08-07] MEDS: METOPROLOL TARTRATE 25 MG TAB PO SCH ×2 (11:00→20:47)
[2017-08-07] MEDS: LISINOPRIL 40 MG TABLET PO SCH ×2 (11:00→20:46)
[2017-08-07 16:00] VITALS: BP 152/70
[2017-08-07 19:25] VITALS: BP 136/66
[2017-08-07] MEDS: DONEPEZIL HCL 5 MG TAB PO SCH (20:46)
[2017-08-07] MEDS: MIRTAZAPINE 15 MG TABLET PO SCH (20:47)
[2017-08-08 00:20] VITALS: BP 142/66
[2017-08-08 04:16] VITALS: BP 135/60
[2017-08-08 04:52] LABS: HEMATOCRIT 32.8 % (36-48)
[2017-08-08] MEDS: INSULIN HUMULIN R 100 UNIT/ML 3ML SQ SCH ×3 (06:34→20:56)
[2017-08-08 07:00] VITALS: BP 126/77
[2017-08-08] MEDS: FAMOTIDINE/PF 20 MG/2 ML VIAL IV SCH (09:00)
[2017-08-08] MEDS: METOPROLOL TARTRATE 25 MG TAB PO SCH ×2 (09:35→20:02)
[2017-08-08] MEDS: AMLODIPINE BESYLATE 2.5 MG TAB PO SCH (09:35)
[2017-08-08] MEDS: LISINOPRIL 40 MG TABLET PO SCH ×2 (09:35→19:36)
[2017-08-08] MEDS: SUCRALFATE 1 GM TABLET PO SCH ×3 (09:35→19:36)
[2017-08-08 11:00] VITALS: BP 128/50
[2017-08-08 15:42] VITALS: BP 148/70
[2017-08-08 19:05] VITALS: BP 135/68
[2017-08-08] MEDS: DONEPEZIL HCL 5 MG TAB PO SCH (19:36)
[2017-08-08] MEDS: ACETAMINOPHEN 325 MG TAB PO PRN (19:38)
[2017-08-08] MEDS: MIRTAZAPINE 15 MG TABLET PO SCH (20:02)
[2017-08-09] VITALS (7 sets, daily range): BP systolic 119–155; BP diastolic 50–78
[2017-08-09] MEDS: INSULIN HUMULIN R 100 UNIT/ML 3ML SQ SCH ×4 (06:11→20:59)
[2017-08-09 06:50] LABS: HEMATOCRIT 33.5 % (36-48)
[2017-08-09] MEDS: SUCRALFATE 1 GM TABLET PO SCH ×3 (09:00→19:47)
[2017-08-09] MEDS: AMLODIPINE BESYLATE 2.5 MG TAB PO SCH (09:00)
[2017-08-09] MEDS: METOPROLOL TARTRATE 25 MG TAB PO SCH ×2 (09:00→19:47)
[2017-08-09] MEDS: LISINOPRIL 40 MG TABLET PO SCH ×2 (09:00→19:46)
[2017-08-09] MEDS: DONEPEZIL HCL 5 MG TAB PO SCH (19:46)
[2017-08-09] MEDS: ACETAMINOPHEN 325 MG TAB PO PRN (19:47)
[2017-08-09] MEDS: MIRTAZAPINE 15 MG TABLET PO SCH (19:47)
[2017-08-09] MEDS: FAMOTIDINE 20MG TAB 20 MG TAB PO SCH (20:59)
[2017-08-10] VITALS (7 sets, daily range): BP systolic 121–163; BP diastolic 60–88
[2017-08-10 04:59] LABS: HEMATOCRIT 33.3 % (36-48)
[2017-08-10] MEDS: INSULIN HUMULIN R 100 UNIT/ML 3ML SQ SCH ×4 (05:56→20:49)
[2017-08-10] MEDS: LISINOPRIL 40 MG TABLET PO SCH ×2 (10:12→20:49)
[2017-08-10] MEDS: FAMOTIDINE 20MG TAB 20 MG TAB PO SCH (10:13)
[2017-08-10] MEDS: AMLODIPINE BESYLATE 2.5 MG TAB PO SCH (10:13)
[2017-08-10] MEDS: SUCRALFATE 1 GM TABLET PO SCH ×3 (10:13→20:49)
[2017-08-10] MEDS: METOPROLOL TARTRATE 25 MG TAB PO SCH ×2 (10:13→20:49)
[2017-08-10] MEDS ORDERED: ONDANSETRON 4 MG TABLET PO PRN (17:15)
[2017-08-10] MEDS ORDERED: ONDANSETRON 4 MG TABLET ONE (17:40)
[2017-08-10] MEDS: MIRTAZAPINE 15 MG TABLET PO SCH (20:49)
[2017-08-10] MEDS: DONEPEZIL HCL 5 MG TAB PO SCH (20:49)
[2017-08-11 03:15] VITALS: BP 152/79
[2017-08-11 03:24] LABS: HEMATOCRIT 33.1 % (36-48)
[2017-08-11] MEDS: INSULIN HUMULIN R 100 UNIT/ML 3ML SQ SCH ×3 (06:02→16:30)
[2017-08-11 08:00] VITALS: BP 155/71
[2017-08-11] MEDS: SUCRALFATE 1 GM TABLET PO SCH ×2 (10:29→14:19)
[2017-08-11] MEDS: METOPROLOL TARTRATE 25 MG TAB PO SCH (10:30)
[2017-08-11] MEDS: LISINOPRIL 40 MG TABLET PO SCH (10:30)
[2017-08-11] MEDS: FAMOTIDINE 20MG TAB 20 MG TAB PO SCH (10:30)
[2017-08-11] MEDS: AMLODIPINE BESYLATE 2.5 MG TAB PO SCH (10:30)
[2017-08-11 11:00] VITALS: BP 143/67
[2017-08-11 16:00] VITALS: BP 155/83
[2017-08-11] MEDS: ACETAMINOPHEN 325 MG TAB PO PRN (16:55)
[2017-08-11 20:00] VITALS: BP 148/73
[2017-08-11] MEDS ORDERED: CIPROFLOXACIN HCL 0.2%/HYDROCORT 1% 10 ML OTIC SUSP OTIC SCH (21:00)
== END 2017-08-11 20:30 | disposition short-term general hospital (02) | DRG 378 ==
LOC: EDH 09:03 → EDHIP 11:15 → OBSVTOIN 11:15 → 3AH 23:16
PROVIDERS: ADMIT Family Medicine; ATTEND Family Medicine
DX: K92.2 Gastrointestinal hemorrhage, unspecified (principal); Q27.30 Arteriovenous malformation, site unspecified; D50.0 Iron deficiency anemia secondary to blood loss (chronic); E11.9 Type 2 diabetes mellitus without complications; E78.5 Hyperlipidemia, unspecified; F03.90 Unspecified dementia, unspecified severity, without behavioral disturbance, psychotic disturbance, mood disturbance, and anxiety; K55.20 Angiodysplasia of colon without hemorrhage; Q63.1 Lobulated, fused and horseshoe kidney
CPT/HCPCS: 36415; 78278; 80048; 80053; 82270; 82948; 85014; 85018; 85025; 85610; 85730; 86850; 86900; 86901; A4218; A9512; J1815; J2405; J3490; J7030; J7042; J7070; Q0162

== ENCOUNTER 2019-08-05 11:37 | Inpatient (IN) | payer MEDICARE ==
[~2019-08-05] VITALS: Ht 165.1 cm; Wt 80.4 kg
[~2019-08-05 11:37] MED LIST changes: -AMLO2.5T PO; +AMLO2.5T4 PO; -FERS325 PO; -FOLI1TAB15 PO; -HYDR25SU11 PR; -LEVO250T2 PO; -MECL-111 PO; +MECL-160 PO; +METF-446 PO; -METF10004 PO; +MIRT-72 PO; -PANT40TA25 PO
[2019-08-05 13:13] LABS: CREATININE 1.6 mg/dL (0.5-1.5); POTASSIUM 4.8 mmol/L (3.5-5.1)
[2019-08-05 13:15] LABS: INR 1.15 (0.85-1.15); PARTIAL THROMBOPLASTIN TIME 27.9 SEC (26.3-35.5)
[2019-08-05 13:18] LABS: ALBUMIN 2.9 g/dL (3.5-5.0); BILIRUBIN,TOTAL 0.4 mg/dL (0.2-1.0); TOTAL PROTEIN, SERUM 6.8 g/dL (6.0-8.3)
[2019-08-05 13:24] LABS: BASOPHILS % (AUTO) 0.7 % (0.0-5.0); EOSINOPHILS % (AUTO) 2.5 % (0.0-8.0); HEMATOCRIT 32.3 % (36-48); LYMPHOCYTES % (AUTO) 39.9 % (21.0-51.0); MEAN CORPUSCULAR HEMOGLOBIN 24.6 pg (27.0-33.0); MEAN CORPUSCULAR HGB CONC 30.7 g/dL (32.0-36.0); MEAN CORPUSCULAR VOLUME 80.3 fL (79-99); MONOCYTES % (AUTO) 9.2 % (3.0-13.0); NEUTROPHILS % (AUTO) 47.5 % (40.0-77.0); PLATELET COUNT (AUTO) 139 K/uL (130-400); RED BLOOD CELL COUNT(AUTO) 4.02 MIL/uL (4.00-5.50)
[2019-08-05] MEDS ORDERED: SODIUM CHLORIDE 0.9% 500ML 500 ML IV ONE (15:28)
[2019-08-05] MEDS ORDERED: ACETAMINOPHEN 325 MG TAB PO PRN ×2 (17:30)
[2019-08-05] MEDS ORDERED: PHARMACY COMMUNICATION MISC SCH (17:30)
[2019-08-05] MEDS ORDERED: HYDRALAZINE HCL 20 MG/ML VIAL IV PRN (17:30)
[2019-08-05] MEDS ORDERED: ONDANSETRON HCL 4 MG/2 ML VIAL IV PRN (17:30)
[2019-08-05] MEDS: PANTOPRAZOLE SODIUM 80 MG in SODIUM CHLORIDE 0.9% 100 ML IV SCH (18:30)
--- NOTE | 2019-08-05 18:50 | NUR ---
Received patient from ED at 1850 on room air and charlie vital signs. Patient in no distress at this time. Phone at bedside and other belongings sent home with daughters.
[2019-08-05 19:15] VITALS: BP 113/52
--- NOTE | 2019-08-05 19:30 | NUR ---
Dr. Thompson called and notified of consult. asked if family would like to proceed with colonoscopy, family refused. Dr. Thompson stated that supportive care will be continued.
[2019-08-05 19:59] VITALS: BP 121/74
[2019-08-05] MEDS ORDERED: DEXTROSE 50%-WATER 50 ML DISP.SYRIN IV PRN (20:15)
[2019-08-05] MEDS ORDERED: GLUCAGON 1MG KIT 1 MG ML IM PRN (20:15)
[2019-08-05] MEDS ORDERED: INSU100V39 SQ (20:27)
[2019-08-05] MEDS ORDERED: SPIR25TA6 PO (20:27)
[2019-08-05] MEDS ORDERED: LACT10SO9 PO (20:27)
[2019-08-05] MEDS ORDERED: PANT40TA25 PO (20:27)
[2019-08-05] MEDS ORDERED: FERS325 PO (20:27)
[2019-08-05] MEDS ORDERED: AMLO5TAB9 PO (20:27)
[2019-08-05] MEDS ORDERED: MIRT7.5T11 PO (20:27)
[2019-08-05] MEDS ORDERED: FURO40TA7 PO (20:27)
[2019-08-05] MEDS: SODIUM CHLORIDE 0.9% 1000ML 1,000 ML IV SCH (20:54)
[2019-08-05] MEDS: OCTREOTIDE ACETATE 1,250 MCG in SODIUM CHLORIDE 0.9% 250 ML IV SCH (20:56)
[2019-08-05] MEDS: ZOSYN 3.375GM+NS 50ML 50 ML IV SCH (20:56)
[2019-08-05] MEDS: LACTULOSE 20 GM/30 ML UDCUP PO SCH (20:56)
[2019-08-05 21:00] VITALS: BP 115/45
[2019-08-05] MEDS: INSULIN HUMULIN R 100 UNIT/ML 3ML SQ SCH (21:00)
[2019-08-05 21:27] LABS: HEMATOCRIT 31.9 % (36-48); MEAN CORPUSCULAR HEMOGLOBIN 24.4 pg (27.0-33.0); MEAN CORPUSCULAR HGB CONC 30.1 g/dL (32.0-36.0); PLATELET COUNT (AUTO) 142 K/uL (130-400); RED BLOOD CELL COUNT(AUTO) 3.94 MIL/uL (4.00-5.50); RED CELL DISTRIBUTION WIDTH 30.5 % (11.0-15.5)
[2019-08-05 21:59] VITALS: BP 126/47
[2019-08-05 22:59] VITALS: BP 112/50
[2019-08-05 23:59] VITALS: BP 99/45
[2019-08-06] VITALS (23 sets, daily range): BP systolic 95–131; BP diastolic 36–74
[2019-08-06 04:19] LABS: HEMATOCRIT 29.4 % (36-48); MEAN CORPUSCULAR HGB CONC 30.6 g/dL (32.0-36.0); MEAN CORPUSCULAR VOLUME 81.7 fL (79-99); PLATELET COUNT (AUTO) 133 K/uL (130-400); RED CELL DISTRIBUTION WIDTH 30.3 % (11.0-15.5); WHITE BLOOD COUNT (AUTO) 6.4 K/uL (4.8-10.8)
[2019-08-06 04:25] LABS: CREATININE 1.7 mg/dL (0.5-1.5)
[2019-08-06] MEDS: ZOSYN 3.375GM+NS 50ML 50 ML IV SCH ×3 (05:04→20:19)
[2019-08-06 05:36] LABS: POTASSIUM 5.7 mmol/L (3.5-5.1)
[2019-08-06] MEDS: INSULIN HUMULIN R 100 UNIT/ML 3ML SQ SCH ×4 (07:15→21:01)
--- NOTE | 2019-08-06 07:39 | NUR ---
DR MOTA NOTIFIED VIA PHONE ABOUT AM LABS INCLUDING K LEVEL 5.7, NEW ORDERS GIVEN TO ADMINISTER 40 MG OF LASIX IV AND TO REPEAT K LEVEL IN 4 HOURS.
[2019-08-06] MEDS: LACTULOSE 20 GM/30 ML UDCUP PO SCH ×3 (08:17→19:20)
[2019-08-06] MEDS ORDERED: FUROSEMIDE 10 MG/ML 4ML VIAL IV SCH (08:18)
[2019-08-06] MEDS ORDERED: PANTOPRAZOLE SODIUM 80 MG in SODIUM CHLORIDE 0.9% 100 ML IV SCH (09:00)
--- NOTE | 2019-08-06 09:10 | NUR ---
DR MOTA AT BEDSIDE, NEW ORDERS GIVEN
[2019-08-06] MEDS: SODIUM CHLORIDE 0.9% 1000ML 1,000 ML IV SCH ×2 (09:48→20:19)
[2019-08-06 13:12] LABS: POTASSIUM 4.9 mmol/L (3.5-5.1)
[2019-08-06] MEDS: PANTOPRAZOLE SODIUM 80 MG in SODIUM CHLORIDE 0.9% 100 ML IV SCH ×2 (13:51→20:19)
--- NOTE | 2019-08-06 17:31 | NUR ---
D/C PLAN CM spoke to pt regarding d/c planning. Pt lives alone. States she has provider 6 hrs/day. CM offered short term snf/rehab as possible d/c option. Pt declined. States she has been in the past and wants to return home. CM advised pt to discuss possibly having family to stay while recovering. Pt verbalized understanding. Plan to home. CM to f/u. Addendum: 08/06/19 at 1733 by OLENA PAUL CM Amended: Links added.
[2019-08-06] MEDS: OCTREOTIDE ACETATE 1,250 MCG in SODIUM CHLORIDE 0.9% 250 ML IV SCH (18:23)
--- NOTE | 2019-08-06 19:00 | NUR ---
Received pt, alert and coherent, with sandostatin, protonix drip and NS infusing via right arm. Daughter at bedside, all questions and concerns answered. Will continue to monitor.
[2019-08-06 21:28] LABS: HEMATOCRIT 28.4 % (36-48)
[2019-08-07] VITALS (32 sets, daily range): BP systolic 100–148; BP diastolic 41–79
[2019-08-07 01:39] LABS: APPEARANCE,URINE Cloudy (CLEAR); BILIRUBIN,URINE Negative (NEGATIVE); COLOR,URINE Yellow (YELLOW); GLUCOSE, URINE (UA) Negative (NEGATIVE); KETONES,URINE Negative (NEGATIVE); LEUKOCYTE ESTERASE ,URINE Trace (NEGATIVE); NITRATE,URINE Negative (NEGATIVE); OCCULT BLOOD,URINE Negative (NEGATIVE); PROTEIN,URINE Negative (NEGATIVE); UROBILINOGEN,URINE 0.2 mg/dL (0.2-1.0)
[2019-08-07 01:49] LABS: BACTERIA,URINE None Seen /HPF (None Seen); RBC,URINE None Seen /HPF (0-1); SQUAMOUS EPITHELIAL CELL,UR Few /HPF (0-2); WBC,URINE 0-1 /HPF (0-1)
[2019-08-07 03:59] LABS: HEMATOCRIT 27.6 % (36-48); MEAN CORPUSCULAR HEMOGLOBIN 24.9 pg (27.0-33.0); MEAN CORPUSCULAR HGB CONC 30.4 g/dL (32.0-36.0); MEAN CORPUSCULAR VOLUME 81.7 fL (79-99); PLATELET COUNT (AUTO) 122 K/uL (130-400); RED BLOOD CELL COUNT(AUTO) 3.38 MIL/uL (4.00-5.50); RED CELL DISTRIBUTION WIDTH 30.8 % (11.0-15.5); WHITE BLOOD COUNT (AUTO) 5.8 K/uL (4.8-10.8)
[2019-08-07 04:22] LABS: ALBUMIN 2.5 g/dL (3.5-5.0); BILIRUBIN,TOTAL 0.6 mg/dL (0.2-1.0); CREATININE 1.9 mg/dL (0.5-1.5); MAGNESIUM 1.7 mg/dL (1.80-2.40); PHOSPHORUS 4.5 mg/dL (2.5-4.9); POTASSIUM 4.4 mmol/L (3.5-5.1); TOTAL PROTEIN, SERUM 5.8 g/dL (6.0-8.3)
[2019-08-07] MEDS: ZOSYN 3.375GM+NS 50ML 50 ML IV SCH ×3 (04:28→21:33)
[2019-08-07] MEDS: INSULIN HUMULIN R 100 UNIT/ML 3ML SQ SCH ×4 (07:30→21:00)
[2019-08-07] MEDS: LACTULOSE 20 GM/30 ML UDCUP PO SCH ×3 (08:10→21:33)
--- NOTE | 2019-08-07 08:10 | NUR ---
HELD DOSE OF LACTULOSE, REPORTED TWO LOOSE STOOLS DURING THE NIGHT
[2019-08-07] MEDS ORDERED: POTASSIUM CHLORIDE 20 MEQ ERTAB PO PRN (08:30)
[2019-08-07] MEDS ORDERED: POTASSIUM PHOS 15 mMOL+NS250ML 250 ML IV PRN (08:30)
[2019-08-07] MEDS ORDERED: POTASSIUM CHLORIDE 10% ELIXIR 20 MEQ/15 ML UDCUP PO PRN (08:30)
[2019-08-07] MEDS ORDERED: POTASSIUM CHLORIDE 10MEQ/100ML 100 ML IV PRN (08:30)
[2019-08-07] MEDS ORDERED: MAGNESIUM 2GM PREMIX 50ML 50 ML IV PRN (08:30)
[2019-08-07] MEDS ORDERED: LIDOCAINE HCL-MPF 1% 2ML VIAL IV PRN (08:30)
--- NOTE | 2019-08-07 09:00 | NUR ---
CALLLED OFFICE OF DR JOANIE BERTRAND TO NOTIFY ABOUT LATEST HH 8.4, 27.6, TRENDING DOWN, BASE LINE HH 9.9/32.3, SPOKE TO MARIA. TOVA RODRIGUEZ TO RETURN CALL.
[2019-08-07] MEDS: PANTOPRAZOLE SODIUM 80 MG in SODIUM CHLORIDE 0.9% 100 ML IV SCH ×2 (11:48→22:26)
[2019-08-07] MEDS: SODIUM CHLORIDE 0.9% 1000ML 1,000 ML IV SCH ×3 (12:16→21:38)
[2019-08-07 14:03] LABS: HEMATOCRIT 27.4 % (36-48)
--- NOTE | 2019-08-07 14:26 | NUR ---
HELD DOSE OF LACTULOSE, TOTAL OF 3 LOOSE STOOLS NOTED DURING DAY
--- NOTE | 2019-08-07 17:20 | NUR ---
PATIENT;S DAUGHTER REQUESTING TO SPEAK TO DR JOANIE BERTRAND BEFORE SHE SIGNS CONSENT FOR EGD, MD PAGED AT THIS TIME, PENDING MD TO RETURN CALL.
[2019-08-07] MEDS: OCTREOTIDE ACETATE 1,250 MCG in SODIUM CHLORIDE 0.9% 250 ML IV SCH (21:39)
[2019-08-07 21:45] LABS: HEMATOCRIT 26.6 % (36-48)
[2019-08-07] MEDS ORDERED: SODIUM CHLORIDE 0.9% 250 ML IV ONE (23:09)
[2019-08-08] VITALS (38 sets, daily range): BP systolic 115–173; BP diastolic 47–88
[2019-08-08] MEDS: ZOSYN 3.375GM+NS 50ML 50 ML IV SCH ×3 (05:04→21:40)
[2019-08-08] MEDS: INSULIN HUMULIN R 100 UNIT/ML 3ML SQ SCH ×4 (05:52→21:43)
[2019-08-08 06:49] LABS: HEMATOCRIT 32.1 % (36-48)
[2019-08-08] MEDS: LACTULOSE 20 GM/30 ML UDCUP PO SCH ×3 (07:40→21:40)
[2019-08-08] MEDS: PANTOPRAZOLE SODIUM 80 MG in SODIUM CHLORIDE 0.9% 100 ML IV SCH (08:08)
[2019-08-08 08:39] LABS: INR 1.21 (0.85-1.15); PROTHROMBIN TIME 12.6 SEC (9.6-11.6)
[2019-08-08 08:50] LABS: ALBUMIN 2.6 g/dL (3.5-5.0); BILIRUBIN,TOTAL 1.9 mg/dL (0.2-1.0); CREATININE 1.4 mg/dL (0.5-1.5); POTASSIUM 5.3 mmol/L (3.5-5.1); TOTAL PROTEIN, SERUM 6.1 g/dL (6.0-8.3)
[2019-08-08 09:09] LABS: PARTIAL THROMBOPLASTIN TIME 30.7 SEC (26.3-35.5)
--- NOTE | 2019-08-08 11:30 | NUR ---
TRANSFERRED TO ENDOSCOPY VIA BED, FOR SCHEDULED EGD
[2019-08-08] MEDS ORDERED: PROPOFOL 10 MG/ML 20ML VIAL IV ONE (11:55)
--- NOTE | 2019-08-08 12:10 | NUR ---
BACK IN ROOM, S/P EGD, NO BLEEDING NOTED, PER REPORT. UNLABORED RESPIRATIONS NOTED, AAOX3.
--- NOTE | 2019-08-08 13:10 | NUR ---
DR MOTA UPDATED VIA PHONE REGARDING EGD RESULTS AND LATEST BMP RESULTS INCLUDING K LEVEL 5.3, NO NEW ORDERS GIVEN
[2019-08-08 13:58] LABS: HEMATOCRIT 33.2 % (36-48)
[2019-08-08 22:17] LABS: HEMATOCRIT 31.6 % (36-48)
[2019-08-09] VITALS (9 sets, daily range): BP systolic 108–169; BP diastolic 51–81
--- NOTE | 2019-08-09 04:00 | NUR ---
Attempted to transfer patient to medical floor as per MD orders. However, as per daughter Estrella not satisfied and not approving the transfer to medical floor over the phone. psychiatric social worker supervisor made aware.
[2019-08-09 04:15] LABS: HEMATOCRIT 31.9 % (36-48); MEAN CORPUSCULAR HEMOGLOBIN 25.7 pg (27.0-33.0); MEAN CORPUSCULAR VOLUME 82.9 fL (79-99); PLATELET COUNT (AUTO) 112 K/uL (130-400); RED BLOOD CELL COUNT(AUTO) 3.85 MIL/uL (4.00-5.50); RED CELL DISTRIBUTION WIDTH 27.1 % (11.0-15.5); WHITE BLOOD COUNT (AUTO) 4.1 K/uL (4.8-10.8)
[2019-08-09 04:26] LABS: CREATININE 1.3 mg/dL (0.5-1.5); MAGNESIUM 1.8 mg/dL (1.80-2.40); POTASSIUM 4.5 mmol/L (3.5-5.1)
[2019-08-09 04:33] LABS: % IRON SATURATION 66.5 % (22-44)
[2019-08-09] MEDS: ZOSYN 3.375GM+NS 50ML 50 ML IV SCH ×3 (05:08→20:58)
[2019-08-09] MEDS: INSULIN HUMULIN R 100 UNIT/ML 3ML SQ SCH ×4 (06:10→21:00)
--- NOTE | 2019-08-09 07:12 | NUR ---
Estrella (daughter) called back and said after thinking about it throughout the nigh it is fine to transfer her mother to another (medical)
[2019-08-09] MEDS: PANTOPRAZOLE SODIUM 40 MG TABLET.DR PO SCH (07:56)
[2019-08-09] MEDS: LACTULOSE 20 GM/30 ML UDCUP PO SCH ×3 (07:56→20:58)
--- NOTE | 2019-08-09 09:46 | NUR ---
FAMILY CONTACT Attempted to speak to pt's daughter, Estrella Butcher, at bedside at the request of pt's primary nurse. voiced multiple concerns regarding her mother' care, primarily that her mother received a transfusion of PRBC's 08/07/2019. states that her mother has dementia and is not capable of participating in decision making and that she has POA - this documentation not on pt's current file and will be verified. Attempted to respond to 's questions regarding care but she did not allow for attempted explanation. Stated in a loud voice that I "was not listening" to her. She did not allow for this RN to complete a statement in response to her many concerns. Informed her that I would ask ICU director to speak to her at her earliest convenience. also requested to speak to pt advocate - will inform.
--- NOTE | 2019-08-09 12:03 | NUR ---
ARRIVAL TO ROOM 220 VIA WC. PT IS AAOX3 DENIES CP DENIES SOB DENIES NV NO COMPLAINTS, FAMILY MEMBER IS AT BEDSIDE. TELE PACK IS IN PATIENT. CALL LIGHT WITHIN REACH.
--- NOTE | 2019-08-09 14:25 | NUR ---
STATUS PT IS RESTING IN BED NO COMPLAINTS DENIES PAIN, VISITOR IS AT BEDSIDE.
[2019-08-09] MEDS ORDERED: PEG 3350/NA SULF,BICARB,CL/KCL 4000 ML SOLN PO SCH (16:00)
--- NOTE | 2019-08-09 17:30 | NUR ---
GOLYTELY STARTED ASSISTED UP TO RESTROOM SEVERAL TIMES, BOWEL MOVEMENTS ARE GETTING CLEARER. NO COMPLAINTS DENIES ABD PAIN.
[2019-08-10] VITALS (23 sets, daily range): BP systolic 93–170; BP diastolic 46–86
[2019-08-10] MEDS: PANTOPRAZOLE SODIUM 40 MG TABLET.DR PO SCH (04:41)
[2019-08-10] MEDS: INSULIN HUMULIN R 100 UNIT/ML 3ML SQ SCH ×4 (04:41→20:54)
[2019-08-10] MEDS: ZOSYN 3.375GM+NS 50ML 50 ML IV SCH ×3 (04:41→20:45)
[2019-08-10 06:21] LABS: HEMATOCRIT 32.4 % (36-48); MEAN CORPUSCULAR HEMOGLOBIN 25.8 pg (27.0-33.0); MEAN CORPUSCULAR HGB CONC 30.9 g/dL (32.0-36.0); MEAN CORPUSCULAR VOLUME 83.5 fL (79-99); PLATELET COUNT (AUTO) 114 K/uL (130-400); RED BLOOD CELL COUNT(AUTO) 3.88 MIL/uL (4.00-5.50); RED CELL DISTRIBUTION WIDTH 27.4 % (11.0-15.5); WHITE BLOOD COUNT (AUTO) 4.7 K/uL (4.8-10.8)
--- NOTE | 2019-08-10 06:23 | NUR ---
PT BEING PICKED UP BY OR. PT STABLE. NO DISTRESS NOTED. CLEAR YELLOW COLOR.
[2019-08-10 06:33] LABS: CREATININE 1.3 mg/dL (0.5-1.5); POTASSIUM 4.6 mmol/L (3.5-5.1)
[2019-08-10] MEDS ORDERED: LIDOCAINE HCL 1% 20 ML VIAL ONE (07:03)
[2019-08-10] MEDS ORDERED: PROPOFOL 10 MG/ML 20ML VIAL IV ONE (07:03)
[2019-08-10] MEDS: LACTULOSE 20 GM/30 ML UDCUP PO SCH ×3 (08:22→20:45)
[2019-08-10 09:11] LABS: EOSINOPHILS % (MANUAL) 2 % (1-6); LYMPHOCYTES % (MANUAL) 29 % (22-44); MAN.DIFF COMMENT-IMPRESSION MANUAL DIFFERENTIAL; MONOCYTES % (MANUAL) 13 % (2-9); PLATELET MORPHOLOGY COMMENT SLIGHTLY DECREASED; SEGMENTED NEUTROPHILS % 56 % (40-70)
--- NOTE | 2019-08-10 12:00 | NUR ---
PT IS S/P COLONOSCOPY. PER ORDERS,PATIENT MAY RESTART FULL LIQUID DIET. AWAITING PATHOLOGY RESULTS. PT TO F/U WITH DR. BERTRAND ONCE DISCHARGED. PATIENT TO START ON METAMUCIL.
--- NOTE | 2019-08-10 13:00 | NUR ---
DAUGHTER ABHINAV QUESTIONS ORDER FOR METAMUCIL PATIENT IS ALREADY TAKING SCHEDULED LACTULOSE.
--- NOTE | 2019-08-10 18:11 | NUR ---
PATIENT WAS SEEN BY DR. MACKENZIE THIS AFTERNOON. MD SPOKE TO DAUGHTER ABHINAV IN DETAIL ABOUT PLAN OF CARE. FAMILY MEMBER TOLD MD THAT PATIENT WILL NEED REHAB. SPOKE WITH JOSE FUNES CM AND [facility]
--- NOTE | 2019-08-10 18:34 | NUR ---
DC PLAN VISITED WITH PATIENT. AFTER SPEAKING TO DR. MACKENZIE AND CONCERNS FAMILY HAS. AFTER TALKING TO PATIENT AND DAUGHTERS. FINAL PLAN IS TO GO TO [facility]. DAUGHTER IN [place] ALSO NEEDS TO GO TO A FACILITY. NOT ABLE [facility] SPOKE TO VERENA SAID [facility] CAN [facility] AND WILL HAVE TWO BEDS AVAILABLE TO KEEP DAUGHTER AND MOM TOGETHER. LEON SIGNED BY POA FOR PATIENT SINCE SHE HAS A HISTORY OF ALZHEIMERS. INFO FAXED. NEED PT EVAL ORDER PLACED. VERENA WILL SEE PATIENT IN THE MORNING. LET DR. MACKENZIE KNOW OF NEW PLAN SAID OKAY FOR IRU AND PT. Addendum: 08/10/19 at 1838 by JOSE MILLER RN CM Amended: Links added.
--- NOTE | 2019-08-10 18:48 | NUR ---
PER DR. MACKENZIE, NO NEED TO START METAMUCIL.
--- NOTE | 2019-08-10 22:46 | NUR ---
GAVE REPORT TO GERHARD FUNES. SPOKE TO DAUGHTER ABHINAV REGARDING TRANSFER. REQUESTED THAT SHE BE TRANSFERRED VIA BED. NOT WHEELCHAIR. PT WILL BE MED SURG NO LONGER TELE.
--- NOTE | 2019-08-10 23:00 | NUR ---
PT TRANSFERRED TO 331. PT STABLE. NO DISTRESS NOTED.
--- NOTE | 2019-08-10 23:10 | NUR ---
PT. TRANSFERRED TO FLOOR VIA BED TO BED FROM [facility] WITH PERSONAL BELONGINGS. HAS IV SITE TO [facility]AU[facility] WITH [facility]OSYN RUNNING AT 12.5 ML/HR VIA INFUSION PUMP. PT TOLERATED THE TRANSFER WELL. PT. FULLY AWAKE AND RESPONSIVE. DENIES FEELING OF DISCOMFORT. NO APPARENT DISTRESS NOTED. MONITORED FOR ANY UNUSUALITIES. NEEDS ATTENDED AND CARED FOR.
[2019-08-11 04:00] VITALS: BP 141/67
[2019-08-11] MEDS: ZOSYN 3.375GM+NS 50ML 50 ML IV SCH ×3 (04:11→21:01)
[2019-08-11] MEDS: INSULIN HUMULIN R 100 UNIT/ML 3ML SQ SCH ×4 (05:29→21:00)
[2019-08-11 05:51] LABS: BASOPHILS % (AUTO) 0.8 % (0.0-5.0); EOSINOPHILS % (AUTO) 3.1 % (0.0-8.0); HEMATOCRIT 31.5 % (36-48); LYMPHOCYTES % (AUTO) 35.4 % (21.0-51.0); MEAN CORPUSCULAR HEMOGLOBIN 25.6 pg (27.0-33.0); MEAN CORPUSCULAR HGB CONC 30.8 g/dL (32.0-36.0); MEAN CORPUSCULAR VOLUME 83.1 fL (79-99); MONOCYTES % (AUTO) 8.4 % (3.0-13.0); NEUTROPHILS % (AUTO) 51.9 % (40.0-77.0); PLATELET COUNT (AUTO) 113 K/uL (130-400); RED BLOOD CELL COUNT(AUTO) 3.79 MIL/uL (4.00-5.50); RED CELL DISTRIBUTION WIDTH 26.9 % (11.0-15.5); WHITE BLOOD COUNT (AUTO) 4.9 K/uL (4.8-10.8)
[2019-08-11 06:19] LABS: CREATININE 1.1 mg/dL (0.5-1.5); POTASSIUM 4.5 mmol/L (3.5-5.1)
[2019-08-11] MEDS: PANTOPRAZOLE SODIUM 40 MG TABLET.DR PO SCH (06:42)
[2019-08-11 08:15] VITALS: BP 142/62
[2019-08-11] MEDS: LACTULOSE 20 GM/30 ML UDCUP PO SCH ×3 (09:46→21:01)
[2019-08-11 12:42] VITALS: BP 153/70
--- NOTE | 2019-08-11 16:30 | NUR ---
CM NOTE MEET WITH PATIENT IN ROOM TO LET HER KNOW [facility] APPROVED, SHE WILL BE DISCHARGED AND CLEARED FOR TRANSFER VIA EMS. PATIENT HAD ME TALK TO DAUGHTER, ABHINAV LOREDO ON THE PHONE. INFORMATION GIVEN TO DAUGHTER. ABHINAV RAISED HER VOICE AND SAID SHE DID NOT CARE SHE WAS DISCHARGED OR NOT, SHE WILL NOT TRANSFER IF I AM NOT AT [facility] TO RECEIVE. INFORMED DAUGHTER, ABHINAV, RECEIVING IS NOT MANDATORY AND PATIENT IS CLEAR FOR TRANSFER AND NURSING STAFF CAN RECEIVE AND CALL HER IF ANY ISSUES. ABHINAV PROCEED TO RAISE HER VOICE AGAIN AND STATE I WAS NOT LISTENING, THAT SHE WAS NOT GOING ANYWHERE AND SHE DIDNT CARE IF PATIENT WAS CLEARED. INFORMED ABHINAV OF POSSIBLE BILLING ISSUES NOT COVERED BY INSURANCE IF REFUSES DISCHARGE WHEN MEDICALLY CLEARED. ABHINAV TALKING OVER ME THRU CONVERSATION. I INFORMED MD OF DAUGHTER REFUSING DISCHARGE AT THE MOMENT UNTIL TOMORROW AM. ABHINAV'S REASON FOR HOLD DISCHARGE IS PERSONAL, UNABLE TO FIND FUR REMODELER FOR DAUGHTER SO SHE CAN RECEIVE PATIENT AT [facility]. MD DISCHARGED PATIENT, DETAILED NOTICE OF DISCHARGE LETTER SIGNED BY PRIMARY NURSE, MALVIN FUNES, AND I PATIENT HAS DIAGNOSIS OF ALZHEIMER'S . PATIENT DISCHARGED FROM [facility]ICAL [facility]ANDPOINT, PENDING TRANSFER VIA EMS TO [facility].
[2019-08-11 16:55] VITALS: BP 152/76
--- NOTE | 2019-08-11 17:03 | NUR ---
PT CLEARED TO GO, DAUGHTER HOLDING TRANSFER TODAY, STATES SHE WANTS TO BE AT THE FACILITY WHEN SHE IS TRANSFERRED WHICH IN HER PART IT WILL BE TOMORROW.
[2019-08-11 19:52] VITALS: BP 151/86
[2019-08-11] MEDS: PHYTONADIONE 10 MG/1 ML AMP SQ SCH (21:02)
[2019-08-11 23:25] VITALS: BP 140/85
[2019-08-12 03:33] VITALS: BP 156/79
[2019-08-12] MEDS: ZOSYN 3.375GM+NS 50ML 50 ML IV SCH (05:28)
[2019-08-12 05:32] LABS: BASOPHILS % (AUTO) 0.7 % (0.0-5.0); EOSINOPHILS % (AUTO) 2.4 % (0.0-8.0); HEMATOCRIT 31.1 % (36-48); LYMPHOCYTES % (AUTO) 33.5 % (21.0-51.0); MEAN CORPUSCULAR HEMOGLOBIN 25.9 pg (27.0-33.0); MEAN CORPUSCULAR HGB CONC 30.9 g/dL (32.0-36.0); MEAN CORPUSCULAR VOLUME 84.1 fL (79-99); PLATELET COUNT (AUTO) 113 K/uL (130-400); RED CELL DISTRIBUTION WIDTH 26.8 % (11.0-15.5); WHITE BLOOD COUNT (AUTO) 4.6 K/uL (4.8-10.8)
[2019-08-12 05:43] LABS: INR 1.24 (0.85-1.15); PARTIAL THROMBOPLASTIN TIME 31.3 SEC (26.3-35.5); PROTHROMBIN TIME 13.3 SEC (9.6-11.6)
[2019-08-12 05:57] LABS: ALBUMIN 2.5 g/dL (3.5-5.0); CARBON DIOXIDE 26 mmol/L (21-32); CHLORIDE 110 mmol/L (101-111); CREATININE 1.1 mg/dL (0.5-1.5); GLOMERULAR FILTR. RATE CALC 50 mL/min (>60); GLUCOSE,RANDOM 102 mg/dL (70-105); POTASSIUM 4.4 mmol/L (3.5-5.1); SODIUM SERUM 142 mmol/L (136-145); UREA NITROGEN, BLOOD 9 mg/dL (7-18)
[2019-08-12] MEDS: INSULIN HUMULIN R 100 UNIT/ML 3ML SQ SCH (06:00)
[2019-08-12] MEDS: PANTOPRAZOLE SODIUM 40 MG TABLET.DR PO SCH (06:35)
[2019-08-12 08:28] VITALS: BP 137/72
[2019-08-12] MEDS: LACTULOSE 20 GM/30 ML UDCUP PO SCH (09:15)
--- NOTE | 2019-08-12 11:00 | NUR ---
PT D/C TO [facility] WITH DAUGHTER ABHINAV EDUCATIONS GIVEN RE; Please refer to medication reconciliation sheet for full details on, medications, doses, and frequency of new medications. Also, discontinued, and continued home medications. Medication reconciliation sheet was, completed by Dr. Jin Holcomb Jr.> DC FOLLOW UP: <Patient will be discharged to home to follow-up with his primary care, physician within 3 to 5 days for transition visit., Decorating Supervisor follow-ups: Dr. Bernarda Haji for final result of, transverse colon polyp. PT IV OUT, INTACT, NO DISTRESS, AAOX3, DENIES ANY NEEDS AT THIS TIME. REPORT GIVEN TO TOSHIA AGUILERA FROM [facility].
[2019-08-12] MEDS: PHYTONADIONE 10 MG/1 ML AMP SQ SCH (11:07)
== END 2019-08-12 11:15 | disposition home or self-care (01) | DRG 393 ==
LOC: EDH 11:37 → EDHIP 17:25 → 2BH 18:57 → 4BH 08-09 03:56 → 2BH 08-09 04:27 → 2DH 08-09 12:24 → 3AH 08-10 23:00
PROVIDERS: ADMIT Internal Medicine; ATTEND Internal Medicine
PROC: 30233N1 Transfusion of Nonautologous Red Blood Cells into Peripheral Vein, Percutaneous Approach (ICD-10-PCS; principal; 2019-08-08)
PROC: 0DJ08ZZ Inspection of Upper Intestinal Tract, Via Natural or Artificial Opening Endoscopic (ICD-10-PCS; 2019-08-08)
PROC: 0DBL8ZZ Excision of Transverse Colon, Via Natural or Artificial Opening Endoscopic (ICD-10-PCS; 2019-08-10)
DX: K63.5 Polyp of colon (principal); K57.31 Diverticulosis of large intestine without perforation or abscess with bleeding; D62 Acute posthemorrhagic anemia; N17.9 Acute kidney failure, unspecified; K76.6 Portal hypertension; K74.60 Unspecified cirrhosis of liver; I95.9 Hypotension, unspecified; D69.6 Thrombocytopenia, unspecified; E78.5 Hyperlipidemia, unspecified; K64.8 Other hemorrhoids; K74.69 Other cirrhosis of liver; K31.89 Other diseases of stomach and duodenum; D50.9 Iron deficiency anemia, unspecified; E11.9 Type 2 diabetes mellitus without complications; I10 Essential (primary) hypertension; F02.80 Dementia in other diseases classified elsewhere, unspecified severity, without behavioral disturbance, psychotic disturbance, mood disturbance, and anxiety; G30.9 Alzheimer's disease, unspecified; Q63.1 Lobulated, fused and horseshoe kidney; Z82.49 Family history of ischemic heart disease and other diseases of the circulatory system; Z79.4 Long term (current) use of insulin; Z87.11 Personal history of peptic ulcer disease; Z80.9 Family history of malignant neoplasm, unspecified; Z90.49 Acquired absence of other specified parts of digestive tract; Z79.899 Other long term (current) drug therapy
CPT/HCPCS: 36415; 36430; 43235; 45380; 71045; 74176; 76700; 80048; 80053; 81001; 82040; 82140; 82270; 82550; 82948; 83540; 83550; 83605; 83735; 84100; 84132; 84145; 85014; 85018; 85025; 85027; 85610; 85730; 86850; 86900; 86901; 86922; 87088; 88305; 93971; 97039; A4606; C9113; G0378; J1815; J1940; J2354; J2405; J2543; J2704; J3475; J7030; J7040; P9016